=== PATIENT | female | born 1980 | race Caucasian/White ===

== ENCOUNTER 2016-12-19 20:56 | Emergency (ER) | payer SELFPAY ==
[~2016-12-19] VITALS: Ht 175.3 cm; Wt 59.0 kg
[~2016-12-19 20:56] MED LIST: HYDR-79 PO; ONDA8TAB12 PO
[2016-12-19 21:00] VITALS: BP 128/75
[2016-12-19] MEDS ORDERED: ACETAMINOPHEN 325 MG TABLET PO ONE (21:20)
[2016-12-19] MEDS ORDERED: GUAI1TBM10 PO (21:24)
[2016-12-19] MEDS ORDERED: NAPR275T59 PO (21:24)
[2016-12-19] MEDS ORDERED: DIPH25CA58 PO (21:24)
--- NOTE | 2016-12-19 21:24 | PHYS DOC ---
Past History Past Medical History: No Pertinent History Past Surgical History: Tubal ligation, Other Additional Past Surgical Histo: hernia surgery breast augmentation Smoking: Cigarettes Alcohol Use: None Drug Use: Marijuana Adult General Chief Complaint Chief Complaint: FLU SYMPTOM HPI HPI She is a pleasant 36-year-old female with flu and cold like symptoms that began earlier today. She describes myalgias and productive cough aches and pains all over and subjective fevers and chills. She denies any sick contacts. She attempted to use marijuana and attempt to treat her symptoms today. She has no sick contacts, no recent travel outside the country, no recent antibiotic use. Patient admits that she is looking for symptom treatment. But is taking nothing at home for fear of bringing or chemicals in her body she does not understand how they'll affect her Review of Systems Review of Systems Constitutional: sHe has had subjective fevers and chills. Eyes: Denies change in visual acuity, redness, or eye pain [] HENT: He said some nasal congestion without a sore throat Respiratory: sHe has had a cough without shortness of breath [] Cardiovascular: No additional information not addressed in HPI [] GI: Denies abdominal pain, vomiting or diarrhea but has had some nausea. : Denies dysuria or hematuria [] Musculoskeletal: Denies back pain or joint pain she complains of myalgias. Integument: Denies rash or skin lesions [] Neurologic: Denies headache, focal weakness or sensory changes [] Endocrine: Denies polyuria or polydipsia [] Current Medications Current Medications Current Medications Medications (Trade) Dose Ordered Sig/[facility] Start Time Stop Time Status Last Admin Dose Admin Acetaminophen (Tylenol) 650 mg 1X ONCE 12/19/16 21:15 12/19/16 21:16 UNV Allergies Allergies Allergies Coded Allergies Type Severity Reaction Last Updated Verified No Known Drug Allergies 09/25/13 No Physical Exam Physical Exam Vital signs stable blood pressure patient is afebrile Constitutional: Well developed, well nourished, no acute distress, non-toxic appearance. Patient smells of marijuana HENT: Normocephalic, atraumatic, bilateral external ears normal, oropharynx moist, no oral exudates, nose normal. [] Eyes: PERRLA, EOMI, conjunctiva normal, no discharge. [] Neck: Normal range of motion, no tenderness, supple, no stridor. [] Cardiovascular:Heart rate regular rhythm, no murmur [] Lungs & Thorax: Bilateral breath sounds clear to auscultation [] Abdomen: Bowel sounds normal, soft, no tenderness, no masses, no pulsatile masses. [] Skin: Warm, dry, no erythema, no rash. [] Back: No tenderness, no CVA tenderness. [] Extremities: No tenderness, no cyanosis, no clubbing, ROM intact, no edema. [] Neurologic: Alert and oriented X 3, normal motor function, normal sensory function, no focal deficits noted. [] Psychologic: Affect normal, judgement normal, mood normal. [] Current Patient Data Lab Results Laboratory Tests Test 12/19/16 21:15 Influenza Type A (Rapid) Negative (NEGATIVE) Influenza Type B (Rapid) Negative (NEGATIVE) EKG EKG [] Radiology/Procedures Radiology/Procedures [] Course & Med Decision Making Course & Med Decision Making Pertinent Labs and Imaging studies reviewed. (See chart for details) Contusion presents with URI-like symptoms and possible influenza. Infant screen is completed patient given some Tylenol and Zofran while waiting. Patient exhibits no signs of exudates on her tonsils doubt strep pharyngitis or peritonsillar abscess, retropharyngeal abscess, otitis media and otitis externa or other sinusitis symptoms. Patient's lungs are clear she demonstrates no fever to today's exam. That a productive cough doubt pneumonia. Patient has negative influenza screen today she was sent home with positive supportive medications [] Dragon Disclaimer Dragon Disclaimer This chart was dictated in whole or in part using Voice Recognition software in a busy, high-work load, and often noisy Emergency Department environment. It may contain unintended and wholly unrecognized errors or omissions. Departure Departure: Impression: Primary Impression: Viral syndrome Additional Impression: Nausea Disposition: 01 HOME, SELF-CARE Condition: IMPROVED Referrals: NIKOS HAMMOND (PCP) Patient Instructions: Nausea and Vomiting, Viral Infections Additional Instructions: Please return for any new or increasing symptoms despite treatment. sHe will be given supportive medications please take them as prescribed as they may help you feel better. Please return for any new or question she might have about your symptoms. Scripts Naproxen Sodium (NAPROXEN SODIUM) 275 Mg Tablet 275 MG PO BID for 7 Days, #14 TAB Prov: JULIÁN BALBUENA MD 12/19/16 Guaifenesin/Dextromethorphan (MUCINEX DM ER 1,200-60 MG TAB) 1 Each Tbmp.12hr 1 TAB PO BID, #20 TAB 1 Refill Prov: JULIÁN BALBUENA MD 12/19/16 Diphenhydramine Hcl (BENADRYL) 25 Mg Capsule 25 MG PO QID for 7 Days, #28 CAP Prov: JULIÁN BALBUENA MD 12/19/16 Problem Qualifiers JULIÁN BALBUENA MD Dec 19, 2016 21:24
[2016-12-19] MEDS ORDERED: ONDANSETRON ODT 4 MG TAB.RAPDIS PO ONE (21:30)
[2016-12-19 21:45] LABS: INFLUENZA A PATIENT NEGATIVE (NEGATIVE); INFLUENZA B PATIENT NEGATIVE (NEGATIVE)
== END 2016-12-19 21:55 | disposition home or self-care (01) ==
LOC: ER 20:56
DX: B34.9 Viral infection, unspecified (principal); F17.210 Nicotine dependence, cigarettes, uncomplicated; F12.10 Cannabis abuse, uncomplicated
CPT/HCPCS: 87804; 99284; Q0162

== ENCOUNTER 2018-11-03 01:09 | Emergency (ER) | payer SELFPAY ==
[~2018-11-03] VITALS: Ht 175.3 cm; Wt 56.7 kg
[~2018-11-03 01:09] MED LIST changes: +DIPH25CA58 PO; +GUAI1TBM10 PO; +HYDR-1179 PO; -HYDR-79 PO; +NAPR275T59 PO
[2018-11-03] MEDS ORDERED: MUPI22OI2 TP (01:54)
[2018-11-03] MEDS ORDERED: SULF1TAB24 PO (01:54)
--- NOTE | 2018-11-03 02:16 | ED.ADGEN ---
Past History Past Medical History: No Pertinent History Past Surgical History: Tubal ligation, Other Additional Past Surgical Histo: hernia surgery breast augmentation Smoking: Cigarettes Alcohol Use: None Drug Use: Marijuana Adult General Chief Complaint Chief Complaint Neck swelling HPI HPI Patient is a 38-year-old female who presents with infected comedone on anterior mid neck. Patient was evaluated by her PCP for this condition 3 days ago and started on a brief course of Bactrim. Patient states and is concerned that the comedone has not resolved. There is no fluctuance, streaking or induration. Patient denies constitutional symptoms. No other acute symptoms or complaints. [] Review of Systems Review of Systems Review symptoms as per history of present illness. All other systems were reviewed and found to be within normal limits, except as documented in this note. Allergies Allergies Allergies Coded Allergies Type Severity Reaction Last Updated Verified No Known Drug Allergies 09/25/13 No Physical Exam Physical Exam Constitutional: Well developed, well nourished, no acute distress, non-toxic appearance. [] HENT: Normocephalic, atraumatic, bilateral external ears normal, oropharynx moist, no oral exudates, nose normal. [] Eyes: PERRLA, EOMI, conjunctiva normal, no discharge. [] Neck: Normal range of motion, no tenderness, supple, 1 cm x 1 cm area of raised erythema consistent with inflamed or infected comedone. No fluctuance, induration,streaking. [] Cardiovascular:Heart rate regular rhythm, no murmur [] Lungs & Thorax: Bilateral breath sounds clear to auscultation [] Abdomen: Bowel sounds normal, soft, no tenderness, no masses, no pulsatile masses. [] Neurologic: Alert and oriented X 3, normal motor function, normal sensory function, no focal deficits noted. [] Psychologic: Affect normal, judgement normal, mood normal. [] EKG EKG [] Radiology/Procedures Radiology/Procedures [] Course & Med Decision Making Course & Med Decision Making Pertinent Labs and Imaging studies reviewed. (See chart for details) [Recommend topical antibiotics continue Bactrim and PCP follow-up as needed.] Final Impression Final Impression 1. infected comedome[] Dragon Disclaimer Dragon Disclaimer This electronic medical record was generated, in whole or in part, using a voice recognition dictation system. ARETHA MCKEON DO Nov 03, 2018 02:16
[2018-11-03 03:35] VITALS: BP 100/73
== END 2018-11-03 02:01 | disposition home or self-care (01) ==
LOC: ER 01:09
DX: L70.0 Acne vulgaris (principal); L08.89 Other specified local infections of the skin and subcutaneous tissue; F17.210 Nicotine dependence, cigarettes, uncomplicated
CPT/HCPCS: 99283

== ENCOUNTER 2020-08-03 20:31 | Emergency (ER) | payer SELFPAY ==
[~2020-08-03] VITALS: Ht 175.3 cm; Wt 52.0 kg
[~2020-08-03 20:31] MED LIST changes: +MUPI22OI2 TP; +SULF1TAB24 PO
--- NOTE | 2020-08-03 20:35 | PHYS DOC ---
Past History Past Medical History: No Pertinent History Past Surgical History: Tubal ligation, Other Additional Past Surgical Histo: hernia surgery breast augmentation Smoking: Cigarettes Alcohol Use: None Drug Use: None General Adult HPI: HPI: "..I was bored.. and decided to do a couple of street oxy... I already in drug treatment .. I see a group at [facility]...I ve been off Heroin.. for six months.. and just was bored.. and joshua decided to do a couple hits.." Patient is a 40 year old female who presents with history of mental status change and nausea and vomiting. Patient found by her significant other or josue having snoring respirations and nonresponsive to noxious stimuli. Josue stated he did compressions on urine gave her best try to get her to wake up. When patient did wake up she started vomiting. At that time he called the ambulance. Patient does have a history of heroin addiction and reportedly has been clean for the past 6 months. Patient eventually did admit tot reportedly took 2 fake oxycodones at 1600 hrs. for recreational high. Patient initially ve ry overly sedate and active vomiting.. Patient's mental status gradually improved during her ER visit. Patient declined admission and eventually demanding discharge. Patient josue - [phone] advised he would be with her if she refused admission. Review of Systems: Review of Systems: Constitutional: Denies fever or chills Eyes: Denies change in visual acuity HENT: Denies nasal congestion or sore throat Respiratory: Denies cough or shortness of breath Cardiovascular: Denies chest pain or edema GI: Denies abdominal pain, bloody stools or diarrhea . Patient complains of nausea and vomiting : Denies dysuria Musculoskeletal: Denies back pain or joint pain Integument: Denies rash Neurologic: Denies headache, focal weakness or sensory changes Endocrine: Denies polyuria or polydipsia Lymphatic: Denies swollen glands Psychiatric: Denies depression or anxiety Family History: Family History: Noncontributory to presentation Current Medications: Current Meds: See nursing for home meds Allergies: Allergies: Allergies Coded Allergies Type Severity Reaction Last Updated Verified No Known Drug Allergies 09/25/13 No Physical Exam: PE: Constitutional: Moderate acute distress, non-toxic appearance. [] HENT: Normocephalic, atraumatic, bilateral external ears normal, oropharynx moist, no oral exudates, nose rhinorrhea and mild nasal congestion Eyes: PERRLA, EOMI, conjunctiva normal, no discharge. [] Neck: Normal range of motion, no tenderness, supple, no stridor. [] Cardiovascular:Heart rate regular rhythm, no murmur [] Lungs & Thorax: Bilateral breath sounds clear to auscultation [] Abdomen: Bowel sounds creased, soft, no tenderness, no masses, no pulsatile masses. [] Initially actively vomiting in the emergency department Skin: Warm, dry, no erythema, no rash. Multiple tattoos Back: No tenderness, no CVA tenderness. [] Extremities: No tenderness, no cyanosis, no clubbing, ROM intact, no edema. [] Neurologic: Initially extremely sedate but eventually came much more alert. Patient's mental status gradually cleared and became oriented X 3, moves all extremities on request, did have distal sensory, no focal deficits noted. [] Psychologic: Affect sedate, judgement normal, mood normal. Patient denies suicidal ideation. Patient denies homicidal ideation. EKG: EKG: My interpretation EKG shows a sinus rhythm at 61 bpm. No findings acute morphology [] Radiology/Procedures: Radiology/Procedures: [][place] [address] IMAGING REPORT Signed PATIENT: APOLINAR DENSON DACCOUNT: [id number] : 1980 LOCATION: ER AGE: 40 SEX: F EXAM STATUS: PRE ER ORD. PHYSICIAN: ELSIE EVANS MD REASON: dyspnea PROCEDURE: PORTABLE CHEST 1V INDICATION: Reason: dyspnea / Spl. Instructions: / History: COMPARISON: None. FINDINGS: Single view of chest obtained. Hyperexpanded lungs without a focal region of airspace consolidation. Calcified lymph nodes at mediastinum and calcified nodules which could be sequela of chronic granulomatous disease. Cardiac silhouette unremarkable. IMPRESSION: * Hyperexpanded lungs without focal airspace consolidation. Electronically signed by: Verónica Avila MD (08/03/2020 9:05 PM) [id number] DICTATED AND SIGNED BY: VERÓNICA AVILA MD DATE: 08/03/202100 CC: ELSIE EVANS MD; PCP,N Heart Score: C/O Chest Pain: N/A HEART Score for Chest Pain: HEART Score for Chest Pain Response (Comments) Value History Slighlty/Non-Suspicious 0 ECG Normal 0 Age < 45 0 Risk Factors No Risk Factors 0 Troponin < Normal Limit 0 Total 0 Risk Factors: Risk Factors: DM, Current or recent (<one month) smoker, HTN, HLP, family history of CAD, obesity. Risk Scores: Score 0 - 3: 2.5% MACE over next 6 weeks - Discharge Home Score 4 - 6: 20.3% MACE over next 6 weeks - Admit for Clinical Observation Score 7 - 10: 72.7% MACE over next 6 weeks - Early Invasive Strategies Course & Med Decision Making: Course & Med Decision Making Pertinent Labs and Imaging studies reviewed. (See chart for details) Patient insisted on discharge. Refused to have a discussion with PAT . Did give pt. information for [facility] Crisis stabilization [phone]. Patient refused admission. Patient encouraged to keep follow-up at her drug rehab meeting. Patient discharged to the custody of her significant other. Impression: 1. Drug overdose-recreational use of street oxycodone 2. Marijuana tobacco use [] Dragon Disclaimer: Chichi Disclaimer: This electronic medical record was generated, in whole or in part, using a voice recognition dictation system. Departure Departure: Referrals: PCP,DWAYNE (PCP) ELSIE EVANS MD Aug 03, 2020 20:35
--- NOTE | 2020-08-03 21:08 | RAD ---
INDICATION: Reason: dyspnea / Spl. Instructions: / History: COMPARISON: None. FINDINGS: Single view of chest obtained. Hyperexpanded lungs without a focal region of airspace consolidation. Calcified lymph nodes at medias tinum and calcified nodules which could be sequela of chronic granulomatous disease. Cardiac silhouet te unremarkable. IMPRESSION: * Hyperexpanded lungs without focal airspace consolidation. Electronically signed by: Saeid Avila MD (08/03/2020 9:05 PM) [id number]
--- NOTE | 2020-08-03 21:23 | EKG ---
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
[2020-08-03 22:02] LABS: BASO % 0 % (0-3); EOS % 0 % (0-3); HEMATOCRIT 38.4 % (36.0-47.0); HEMOGLOBIN 12.4 g/dL (12.0-15.5); LYMPH # 0.7 x10^3/uL (1.0-4.8); LYMPH % 7 % (24-48); MEAN CORPUSCULAR HEMOGLOBIN 30 pg (25-35); MEAN CORPUSCULAR HGB CONC 32 g/dL (31-37); MEAN CORPUSCULAR VOLUME 93 fL (79-100); MONO # 0.6 x10^3/uL (0.0-1.1); MONO % 6 % (0-9); NEUT # 9.3 x10^3uL (1.8-7.7); NEUT % 87 % (31-73); PLATELET COUNT 262 x10^3/uL (140-400); RED BLOOD COUNT 4.15 x10^6/uL (3.50-5.40); RED CELL DISTRIBUTION WIDTH 14.5 % (11.5-14.5); WHITE BLOOD COUNT 10.6 x10^3/uL (4.0-11.0)
[2020-08-03 22:06] LABS: ETHANOL < 10 mg/dL (0-10); SALIC < 2.8 mg/dL (2.8-20.0)
[2020-08-03 22:07] LABS: ACETAMIN < 2.0 mcg/mL (10-30)
[2020-08-03 22:08] LABS: CALCIUM 8.8 mg/dL (8.5-10.1); CREATININE 0.6 mg/dL (0.6-1.0); GFR 111.3; POTASSIUM 4.3 mmol/L (3.5-5.1)
[2020-08-03 22:19] LABS: MAGNESIUM 2.2 mg/dL (1.8-2.4)
[2020-08-03 22:19] LABS: BARBITURATES NEG (NEG); BENZODIAZEPINES NEG (NEG); CANNABINOIDS POS (NEG); COCAINE NEG (NEG); METHADONE NEG (NEG); OPIATES NEG (NEG); PHENCYCLIDINE NEG (NEG)
[2020-08-03 22:20] LABS: AMPHETAMINE/METHAMPHETAMINE NEG (NEG)
[2020-08-03 22:27] LABS: BACTERIA,URINE 0 /HPF (0-FEW); BILIRUBIN,URINE NEG (NEG); CLARITY,URINE CLEAR; COLOR,URINE YELLOW; GLUCOSE,URINE NEG (NEG); NITRITE,URINE NEG (NEG); RBC,URINE 0 /HPF (0-2); SQUAMOUS EPITHELIAL CELL,UR OCC /LPF; UROBILINOGEN,URINE 0.2 mg/dL (0.2 mg/dL); WBC,URINE RARE /HPF (0-4)
[2020-08-03 22:31] VITALS: BP 108/63
== END 2020-08-03 22:47 | disposition home or self-care (01) ==
LOC: ER 20:31
DX: T40.2X1A Poisoning by other opioids, accidental (unintentional), initial encounter (principal); R41.82 Altered mental status, unspecified; R11.2 Nausea with vomiting, unspecified; F12.90 Cannabis use, unspecified, uncomplicated; F17.210 Nicotine dependence, cigarettes, uncomplicated; Z98.890 Other specified postprocedural states; Z98.51 Tubal ligation status; Y92.89 Other specified places as the place of occurrence of the external cause
CPT/HCPCS: 36415; 71045; 80048; 80307; 80329; 81001; 82550; 83735; 83880; 84484; 85025; 85610; 85730; 87040; 93005; 99285; G0480

== ENCOUNTER 2020-08-04 23:23 | Emergency (ER) | payer SELFPAY ==
[~2020-08-04] VITALS: Ht 167.6 cm; Wt 51.4 kg
--- NOTE | 2020-08-04 23:29 | PHYS DOC ---
Past History Past Medical History: No Pertinent History Past Surgical History: Tubal ligation, Other Additional Past Surgical Histo: hernia surgery breast augmentation Smoking: Cigarettes Alcohol Use: None Drug Use: Cocaine, Heroin, Marijuana, Methamphetamine Adult General HPI HPI Patient is a 40yo female presenting via EMS for overdose. She was seen night prior for same complaint. Reportedly abused THC and fentanyl with syringe that was found on scene. Went to shower and was found down and unresponsive by her significant other ~5-10 minutes later. CPR was reportedly started while awaiting EMS to arrive. On arrival, 2mg intranasal narcan administered with significant relief in symptoms and improvement of respiratory depression. On arrival, patient states "I'm a junkie, I've been doing this forever". Admits she has been using "bad weed" that has been laced with unknown opioid. No HI/SI Review of Systems Review of Systems Fourteen body systems of review of systems have been reviewed. See HPI for pertinent positives and negative responses, other pérez all other systems are negative, non-pertinent or non-contributory Allergies Allergies Allergies Coded Allergies Type Severity Reaction Last Updated Verified No Known Drug Allergies 09/25/13 No Physical Exam Physical Exam Constitutional: Well developed, well nourished, no acute distress, non-toxic appearance. HENT: Normocephalic, atraumatic, bilateral external ears normal, oropharynx moist, no oral exudates, nose normal. Eyes: PERRLA, EOMI, conjunctiva normal, no discharge. Neck: Normal range of motion, no tenderness, supple, no stridor. Cardiovascular: Heart rate regular, sinus rhythm, no murmurs rubs or gallops Lungs & Thorax: Bilateral breath sounds clear to auscultation Abdomen: Bowel sounds normal, soft, no tenderness, no masses, no pulsatile masses. Nonsurgical abdomen, no peritoneal signs Skin: Warm, dry, no erythema, no rash. Back: No tenderness, no CVA tenderness. Extremities: No tenderness, no cyanosis, no clubbing, ROM intact, no edema. Neurologic: Alert and oriented X 3, grossly normal motor & sensory function, no focal deficits noted. Psychologic: Depressed affect and mood Current Patient Data Vital Signs Vital Signs Date Time Temp Pulse Resp B/P (MAP) Pulse Ox O2 Delivery O2 Flow Rate FiO2 08/04/20 23:45 97.7 77 18 110/81 (91) 97 Room Air Vital Signs Date Time Temp Pulse Resp B/P (MAP) Pulse Ox O2 Delivery O2 Flow Rate FiO2 08/04/20 23:45 97.7 77 18 110/81 (91) 97 Room Air EKG EKG EKG ordered and interpreted by myself at 2357 hrs. as sinus rhythm at 69 bpm, unremarkable intervals, no axis deviation, no acute ischemic findings, no STEMI Radiology/Procedures Radiology/Procedures PROCEDURE: PORTABLE CHEST 1V AP chest x-ray HISTORY: Drug overdose. FINDINGS: Comparison is made to chest x-ray August 03, 2020. Heart size normal. Mediastinal silhouette is normal. Hyperinflation the lungs similar the prior exam. No pneumothorax, pulmonary opacities or pleural effusions. Bones are unremarkable. Calcified granuloma right medial lung base. IMPRESSION: Hyperinflation of the lungs similar to the prior exam. No pulmonary opacity. Electronically signed by: Carlos Arcos MD (08/05/2020 1:29 AM) [facility] Heart Score C/O Chest Pain: No Risk Factors: Risk Factors: DM, Current or recent (<one month) smoker, HTN, HLP, family history of CAD, obesity. Risk Scores: Risk Factors: DM, Current or recent (<one month) smoker, HTN, HLP, family history of CAD, obesity. Course & Med Decision Making Course & Med Decision Making Hemodynamically stable with HPI and PE consistent with recent OD s/p reversal with narcan In the middle of ER workup patient voiced she wanted to leave AMA. Patient assessed by myself and deemed to have full capacity. Risks and benefits reviewed at length in addition to consequences of leaving AMA prior to completion of workup, she continued to voice AMA Patient left department prior to receiving paperwork Dragon Disclaimer Chichi Disclaimer This electronic medical record was generated, in whole or in part, using a voice recognition dictation system. Departure Departure: Impression: Primary Impression: Overdose Additional Impression: Left against medical advice Disposition: 07 AMA/ELOPED/LWBS Condition: GUARDED Referrals: NON,STAFF (PCP) Problem Qualifiers KIM MILIAN DO Aug 04, 2020 23:29
[2020-08-04 23:45] VITALS: BP 110/81
--- NOTE | 2020-08-05 00:01 | EKG ---
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
[2020-08-05 00:29] LABS: BARBITURATES NEG (NEG); BENZODIAZEPINES POS (NEG); CANNABINOIDS POS (NEG); COCAINE NEG (NEG); METHADONE NEG (NEG); OPIATES NEG (NEG); PHENCYCLIDINE NEG (NEG)
[2020-08-05 00:33] LABS: AMPHETAMINE/METHAMPHETAMINE NEG (NEG)
--- NOTE | 2020-08-05 01:31 | RAD ---
AP chest x-ray HISTORY: Drug overdose. FINDINGS: Comparison is made to chest x-ray August 03, 2020. Heart size normal. Mediastinal silhouette is normal. Hyperinflation the lungs similar the prior exam. No pneumothorax, pulmonary opacities or pleural effusions. Bones are unremarkable. Calcified granuloma right medial lung base. IMPRESSION: Hyperinflation of the lungs similar to the prior exam. No pulmonary opacity. Electronically signed by: Carlos Arcos MD (08/05/2020 1:29 AM) [facility]
== END 2020-08-05 00:45 | disposition left against medical advice (07) ==
LOC: ER 23:23
DX: T40.7X1A Poisoning by cannabis (derivatives), accidental (unintentional), initial encounter (principal); T40.411A Poisoning by fentanyl or fentanyl analogs, accidental (unintentional), initial encounter; R40.4 Transient alteration of awareness; Y92.89 Other specified places as the place of occurrence of the external cause; F17.210 Nicotine dependence, cigarettes, uncomplicated
CPT/HCPCS: 36415; 71045; 80307; 81025; 93005; 99285